=== PATIENT | male | born 1985 | race African-American/Black ===

== ENCOUNTER 2020-01-06 13:33 | Emergency (ER) | payer OTHER ==
[2020-01-06] MEDS ORDERED: KETOROLAC TROMETHAMINE 60 MG/2 ML SDV IM ONE (14:36)
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
[2020-01-06 14:49] VITALS: BP 129/85
== END 2020-01-06 14:59 | disposition home or self-care (01) ==
LOC: ER 13:33
DX: S13.4XXA Sprain of ligaments of cervical spine, initial encounter (principal); V43.52XA Car driver injured in collision with other type car in traffic accident, initial encounter; Z87.891 Personal history of nicotine dependence
CPT/HCPCS: 99283; 96372; J1885